=== PATIENT | male | born 1960 | race Caucasian/White ===

== ENCOUNTER 2020-11-11 09:15 | Day surgery (SDC) | payer MEDICARE ==
[~2020-11-11 09:15] MED LIST: COZAAR100 MG PO; FLONASE ALLER15.8 ML; HYDRALAZINE 10M10 MG PO; MELOXICAM15 MG PO; NORCO 5-325 TA1 EACH PO; PREGABALIN75 MG PO; PROTONIX 40MG T40 MG PO; SINGULAIR10 MG PO; SYMBICORT 80-10.2 GM INH; TIZANIDINE HCL4 M1 PO; VENTOLIN (1.25 MG/3 INH; VENTOLIN HFA IN18 GM INH; VITAMIN B122500 MC1 PO; VITAMIN D350 MC4 PO
[2020-11-12 05:59] LABS: BASOPHIL 0.1 % (0-2); EOSINOPHIL 0 % (0-5); HCT 33.5 % (42.0-52.0); HGB 10.6 g/dl (13.2-18.0); LYMPHOCYTE 7.5 % (15-48); MCH 27.5 pg (25.0-31.0); MCHC 31.6 g/dL (32.0-36.0); MONOCYTE 8.6 % (0-12); MPV 9.1 fL (6.0-9.5); NEUTROPHIL 83.2 % (41-80); NRBC 0; PLT 353 K/uL (150-400); RBC 3.85 M/uL (4.70-6.00); RDW 13.3 % (11.5-14.0)
[2020-11-12 06:06] LABS: WBC 16.2 K/uL (4.0-10.5)
[2020-11-12 06:19] LABS: BUN/CREAT RATIO (CALC) 9.4 RATIO; CREATININE 0.96 mg/dL (0.67-1.17); POTASSIUM 4.3 mmol/L (3.5-5.1)
[2020-11-12] MEDS ORDERED: FEOSOL325 MG PO (09:05)
[2020-11-12] MEDS ORDERED: XARELTO10 MG PO (09:05)
== END 2020-11-12 10:44 | disposition home health service (06) ==
LOC: FAS 09:15 → FMS 11:01
PROVIDERS: Orthopaedic Surgery
DX: M17.12 Unilateral primary osteoarthritis, left knee (principal); I10 Essential (primary) hypertension; J44.9 Chronic obstructive pulmonary disease, unspecified; K21.9 Gastro-esophageal reflux disease without esophagitis; R11.0 Nausea; Z79.899 Other long term (current) drug therapy; Z88.0 Allergy status to penicillin; Z88.6 Allergy status to analgesic agent; Z88.8 Allergy status to other drugs, medicaments and biological substances; Z91.013 Allergy to seafood; Z91.030 Bee allergy status; Z91.038 Other insect allergy status
CPT/HCPCS: 36415; 73560; 80048; 85025; 86850; 86900; 86901; 94010; 94640; 94760; 94762; 97162; 97165; 97530-GP; C1713; C1776; J0171; J1100; J1170; J1885; J2250; J2270; J2405; J2704; J2795; J3010; J3475; J7120